=== PATIENT | male | born 1965 | race Caucasian/White ===

== ENCOUNTER 2025-02-26 16:54 | Emergency (ER) | payer SELFPAY ==
[2025-02-26] VITALS (30 sets, daily range): BP systolic 148–184; BP diastolic 91–114; PULSE 96–127; RESP 13–29; TEMP 36.9; O2SAT 93–100
--- NOTE | 2025-02-26 17:00 | RT.EKG_ITS ---
APPROVED REPORT Exam: Resting ECG Reason for Exam: tachycardia Patient Location: E HR:115 bpm ECG Measurements Heart Rate 115 AXIS LA 171 P 63 QRSd 93 QRS 60 QT 322 T 42 QTc 447 Conclusion Sinus tachycardia 115 normal axis no stemi
--- NOTE | 2025-02-26 17:35 | W.ED.GENAD ---
Discharge Plan Disposition Patient Disposition: Home Condition: Good Discharge Details Clinical Impression: Elevated blood pressure reading in office without diagnosis of hypertension, Acute dehydration Primary Care Provider: Unknown,Unknown ED Provider: Jaja Stone Home Meds and New Rx's Prescriptions: No Action No Known Home Meds Discharge Instructions Instructions: Dehydration, Adult ED, High Blood Pressure ED Additional Instructions: Referral has been made to care management to establish care with primary care. They will call you to set up an appointment. Stay well-hydrated, drinking plenty of fluids (especially water!) throughout the day. Please cut down on your Mountain Dew/caffeine use. I recommend eating regular meals throughout the day. Return to emergency care if develop new chest pains, shortness of breath, headache/dizziness, feeling like you are going to pass out, weakness, or if you are very worried and need to be rechecked again immediately HPI General Date/Time Provider Initiated Documentation: 02/26/25 17:13. HPI Narrative: Ricco is a 60-year-old male who presents to the emergency department today with hypertension and tachycardia. Feels well overall, denies headaches, vision changes, chest pain, SOB, nausea, vomiting, or weakness. Normal bowel and bladder functions, recent illness, fever/chills, congestion, sore throat, coughing, ankle or calf swelling/pedal edema. No history of diabetes, cardiac/pulmonary issues, smoking, vaping, or murmurs. Denies palpitations. Good energy level today. 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 Last PCP visit was several years ago; unable to check BP regularly. Recent check by nurse friend today revealed significantly elevated BP, advised immediate hospital evaluation. Consumed 1.5 liters of Mountain Dew and a cup of coffee today, no water. Drinks alcohol occasionally, one beer with dinner every 2-3 weeks. Consumes at least 1 liter of Mountain Dew daily, occasionally 2 liters, plus a cup of coffee in the morning. Related Data Home Medications ?Medication ?Instructions ?Recorded ?Confirmed Unknown [No Known Home Meds] 02/26/25 02/26/25 General Stated Complaint: GenMedical FLORENTINO: 3 Exam Const General: cooperative, healthy appearing, comfortable, no acute distress, well developed and well groomed Nutritional Appearance: average body habitus and well nourished Orientation: alert and oriented x3 HENMT Ears: hearing grossly normal bilaterally General nose exam: external nose normal Face and sinus: dry mucous membranes (Tacky mucus membranes) Resp Effort & Inspection: normal respiratory effort and able to speak in complete sentences Auscultation: clear to auscultation bilaterally Cardio Rate: tachycardic Rhythm: regular rhythm Pulses: radial pulses present Extrem General: normal to inspection and no pedal edema Course Vital Signs Vital signs: Vital Signs Temperature 36.9 C 02/26/25 16:57 Pulse 127 H 02/26/25 16:57 Respiratory Rate 16 02/26/25 16:57 Blood Pressure 174/114 H 02/26/25 16:57 Pulse Oximetry 96 02/26/25 16:57 Temperature 36.9 C 02/26/25 16:57 Pulse 127 H 02/26/25 16:57 Respiratory Rate 16 02/26/25 16:57 Blood Pressure 174/114 H 02/26/25 16:57 Pulse Oximetry 96 02/26/25 16:57 Pain Level 0 02/26/25 16:57 Medical Decision Making Initial Assessment: 60-year-old male with significantly elevated blood pressure and tachycardia. Patient reports high caffeine intake and poor hydration/diet. Differential Diagnosis: -Essential hypertension not previously diagnosed -Target endorgan damage - Dehydration: Considered due to poor hydration and physical examination findings. Plan to administer IV fluids. - Anxiety: Considered based on patient history and symptoms. No immediate intervention planned. -Thyroid dysfunction - Caffeine use: High intake noted, contributing to tachycardia and hypertension. Plan to reduce caffeine intake. - No red flags concerning and history of presentation for [place] or pulmonary embolism requiring emergent diagnostic imaging or further evaluation. I independently interpreted the following tests: EKG shows sinus tachycardia, rate 116, no changes consistent with acute ischemia. CBC, CMP, magnesium all reassuring. Slightly elevated BUN to creatinine ratio (25 : 0.8), with specific gravity 1.030 consistent with dehydration. ED Course: - EKG performed, results normal. - Basic labs ordered to rule out underlying conditions. - Administer IV fluids for dehydration; 1.5 L normal saline given with resolution of tachycardia - Referral to PCP for ongoing management. - Blood pressure markedly improved with rest in the emergency department, 150s over 70s. Final Assessment: Patient presents with hypertension and tachycardia likely due to dehydration and high caffeine intake. EKG normal, labs pending. Administered IV fluids and referred to PCP for follow-up. Clinical Impression: - Hypertension - Tachycardia, attributed to dehydration. Disposition: - Discharge: Patient to follow up with primary care physician; referral made to care management to establish care with PCP MDM Components Evaluation: - Number of Differential Diagnoses or Management Options: Dehydration, Anxiety, Caffeine use - Amount and Complexity of Data Reviewed: EKG, basic labs - Risk of Complication and Morbidity or Mortality: Moderate risk due to significantly elevated blood pressure and tachycardia. Patient consented to the use of TAN Quality:SDOH Health Related Social Needs: No Data to Display [facility] All Active Problems (Updated 02/26/25 @ 19:51 by Jaja Blanchard) Acute dehydration (Acute) Elevated blood pressure reading in office without diagnosis of hypertension (Acute) Social History Smoking/Tobacco Use Status: Never Smoking risk assessment performed?: Yes Alcohol Intake: never Drug use: Never Substance use type: does not use Housing: house Do you feel safe at home: Yes Do you feel safe in your relationship?: Yes
[2025-02-26] MEDS: Normal Saline 1,000 ML 1000 ML IV (17:58)
[2025-02-26 18:13] LABS: Abs Immature Grans 0.03 10^3/uL (0.0-0.06); Absolute Basophil Count 0.04 10^3/uL (0.0-0.2); Absolute Eosinophil Count 0.13 10^3/uL (0.0-0.7); Absolute Lymphocyte Count 1.61 10^3/uL (1.2-3.4); Absolute Monocyte Count 0.94 10^3/uL (0.1-0.8); Absolute Neutrophil Count 7.83 10^3/uL (1.2-6.7); Basophils % 0.4 %; Eosinophils % 1.2 %; HCT 46.8 % (40.0-50.0); HGB 15.7 g/dL (13.5-17.5); Immature Grans % 0.3 %; Lymphocytes % 15.2 %; MCH 28.6 pg (27.0-33.0); MCHC 33.5 % (32.0-36.0); MCV 85 fL (80-95); MPV 10.5 fL (8.0-11.0); Monocytes % 8.9 %; Platelet Count 258 10^3/uL (130-400); RBC 5.48 10^6/uL (4.36-5.78); RDW 12.4 % (11.8-14.1); RDW-SD 38.8 fL; WBC 10.58 10^3/uL (4.4-10.8)
[2025-02-26 18:29] LABS: ALT 20 U/L (16-63); AST 27 U/L (15-37); Albumin 4.1 g/dL (3.4-5.0); Alkaline Phosphatase 89 U/L (46-116); Anion Gap 8.9 mmol/L (3-11); BUN 25 mg/dL (7-18); Bilirubin, Total 0.5 mg/dL (0.2-1.0); CO2 25.1 mmol/L (21.0-32.0); CREATININE 0.8 mg/dL (0.70-1.30); Calcium 9.2 mg/dL (8.5-10.1); Chloride 101 mmol/L (98-107); Estimated GFR 100.69 (mL/min/1.73m2); Glucose 108 mg/dL (74-106); Magnesium 2.3 mg/dL (1.8-2.4); Potassium 4.1 mmol/L (3.5-5.1); Sodium 135 mmol/L (136-145); Total Protein 7.9 g/dL (6.4-8.2)
[2025-02-26 19:08] LABS: Bilirubin Negative (Negative); Blood Trace-intact (Negative); Clarity Clear (Clear); Glucose Negative (Negative); Ketones Trace mg/dL (Negative); Leukocyte Esterase Negative (Negative); Nitrite Negative (Negative); Specific Gravity >= 1.030 (1.005-1.025); Urobilinogen 0.2 mg/dL (Up to 0.2); pH 5.5 (5-8)
[2025-02-26 19:15] LABS: Bacteria Rare HPF (Negative); C & S Indicated? No; Casts Negative LPF (Negative); Crystals Negative HPF (Negative); Epithelial Cells Rare HPF (Negative); Mucus Negative (Negative); WBC Negative HPF (0-5)
[2025-02-26] MEDS: Normal Saline 500 ML 1000 ML IV (19:23)
[2025-02-26 19:38] LABS: Lab Add On Test DONE
[2025-02-26 20:45] LABS: T4 8.5 ug/dL (4.7-13.3); TSH 1.87 uIU/mL (0.36-3.74)
== END 2025-02-26 20:30 | disposition home or self-care (01) ==
PROVIDERS: Emergency Provider Nurse Practitioner Family
DX: E86.0 Dehydration; R00.0 Tachycardia, unspecified; R03.0 Elevated blood-pressure reading, without diagnosis of hypertension
CPT/HCPCS: 80053; 93005; 96360; 96361; 99284; 81003; 81015; 83735; 84436; 84443; 85025; 93010